=== PATIENT | female | born 1995 | race Caucasian/White ===

== ENCOUNTER 2022-06-17 10:58 | Outpatient (CLI) | payer MEDICAID ==
[2022-06-17 11:51] LABS: Hemoglobin 13.8 g/dL (12.0-15.5); Mean Corpuscular HGB CONC 33.4 g/dL (32.0-36.0); Mean Corpuscular Hemoglobin 30.1 pg (27.0-33.0); Mean Platelet Volume 12.4 fl (7.4-10.4); Platelet Count 182 10x3/uL (150-450); RBC Distribution Width 12.2 % (11.5-14.5); Red Blood Cell (RBC) Count 4.59 10x6/uL (3.90-5.03); White Blood Cell (WBC) Count 8.3 10x3/uL (3.5-10.5)
[2022-06-17 11:56] LABS: BHCG - Serum Negative (NEGATIVE); Pregs Control Background? CLEAR/WHITE (CLR/WHITE); Pregs Control Bar Appear? YES (CONTROL BAR)
== END 2022-06-17 10:59 | disposition home or self-care (01) ==
LOC: CSHLAB 10:58
PROVIDERS: ATTEND Obstetrics & Gynecology
DX: Z01.812 Encounter for preprocedural laboratory examination (principal); Z20.822 Contact with and (suspected) exposure to COVID-19
CPT/HCPCS: 84703; 85027; 86850; 86900; 86901; 87811

== ENCOUNTER 2022-06-22 10:18 | Day surgery (SDC) | payer MEDICAID ==
[2022-06-17 11:51] LABS: Hemoglobin 13.8 g/dL (12.0-15.5); Mean Corpuscular HGB CONC 33.4 g/dL (32.0-36.0); Mean Corpuscular Hemoglobin 30.1 pg (27.0-33.0); Mean Platelet Volume 12.4 fl (7.4-10.4); Platelet Count 182 10x3/uL (150-450); RBC Distribution Width 12.2 % (11.5-14.5); Red Blood Cell (RBC) Count 4.59 10x6/uL (3.90-5.03); White Blood Cell (WBC) Count 8.3 10x3/uL (3.5-10.5)
[2022-06-17 11:56] LABS: BHCG - Serum Negative (NEGATIVE); Pregs Control Background? CLEAR/WHITE (CLR/WHITE); Pregs Control Bar Appear? YES (CONTROL BAR)
[2022-06-19 10:34] VITALS: BMI 19.2
[2022-06-22] MEDS ORDERED: Lidocaine 1% MPF 2 ML VIAL ONE (11:13)
[2022-06-22] MEDS ORDERED: PROPOFOL 20 ML ONE ×2 (12:40→13:26)
[2022-06-22] MEDS ORDERED: Midazolam HCl 2 mg/2 ml Vial ONE (12:40)
[2022-06-22] MEDS ORDERED: Dexamethasone 20 MG/5 ML VIAL ONE (12:41)
[2022-06-22] MEDS ORDERED: Lidocaine 1% PF 5 ML VIAL ONE (12:41)
[2022-06-22] MEDS ORDERED: Ondansetron PF 4 MG/2 ML Vial ONE (12:41)
[2022-06-22] MEDS ORDERED: HYDROmorphone 0.5 MG/0.5 ML SYRINGE ONE (12:57)
[2022-06-22] MEDS ORDERED: CEFAZOLIN 2 GM VIAL ONE (13:11)
[2022-06-22] MEDS ORDERED: Ferric Subsulfate Topical Solution ONE (13:35)
== END 2022-06-22 15:22 | disposition home or self-care (01) ==
LOC: CSHSDC 10:18
PROVIDERS: ATTEND Obstetrics & Gynecology
PROC: 0UBC8ZZ Excision of Cervix, Via Natural or Artificial Opening Endoscopic (ICD-10-PCS; principal; 2022-06-22)
DX: N87.1 Moderate cervical dysplasia (principal); Z79.899 Other long term (current) drug therapy; Z88.8 Allergy status to other drugs, medicaments and biological substances; Z20.822 Contact with and (suspected) exposure to COVID-19; Z98.890 Other specified postprocedural states
CPT/HCPCS: 36415; 84703; 85027; 86850; 86900; 86901; 87811; 88307; 88341; 88342; J0690; J1100; J1170; J2250; J2405; J2704

== ENCOUNTER 2022-07-16 08:52 | Emergency (ER) | payer MEDICAID, SELFPAY ==
[2022-07-16 09:26] LABS: #Basophils 0.1 10x3/uL (0.0-0.2); #Eosinphils 0.1 10x3/uL (0.0-0.5); #Monocytes 0.6 10x3/uL (0.0-1.1); #Neutrophils 5.2 10x3/uL (1.5-8.4); %Basophils 0.8 % (0.0-2.0); %Eosinophils 1.4 % (0.0-6.0); %Lymphocytes 20.6 % (18.0-47.0); %Monocytes 8.3 % (0.0-10.0); %Neutrophils 68.2 % (40.0-75.0); Hemoglobin 14.1 g/dL (12.0-15.5); Mean Corpuscular HGB CONC 33.8 g/dL (32.0-36.0); Mean Corpuscular Hemoglobin 30.2 pg (27.0-33.0); Mean Corpuscular Volume 89.3 fl (81.6-98.3); Mean Platelet Volume 11.5 fl (7.4-10.4); Platelet Count 251 10x3/uL (150-450); RBC Distribution Width 12.6 % (11.5-14.5); Red Blood Cell (RBC) Count 4.67 10x6/uL (3.90-5.03); White Blood Cell (WBC) Count 7.6 10x3/uL (3.5-10.5)
[2022-07-16 09:30] LABS: BHCG - Serum Negative (NEGATIVE); Pregs Control Background? CLEAR/WHITE (CLR/WHITE); Pregs Control Bar Appear? YES (CONTROL BAR)
== END 2022-07-16 10:30 | disposition home or self-care (01) ==
LOC: CSHERS 08:52 → EEVIPCON 08:52 → CSHERS 10:30
DX: N93.9 Abnormal uterine and vaginal bleeding, unspecified (principal)
CPT/HCPCS: 36415; 84703; 85025; 99284

== ENCOUNTER 2023-05-28 10:20 | Day surgery (SDC) | payer OTHER ==
[2023-05-28 10:50] VITALS: BMI 23.9
[2023-05-28] MEDS ORDERED: Betamet Acet/Betamet Na Ph 30 MG/5 ML VIAL IM SCH (11:22)
[2023-05-28] MEDS ORDERED: Terbutaline Sulfate 1 MG/ML VIAL SC PRN (11:41)
[2023-05-28] MEDS ORDERED: Terbutaline Sulfate 1 MG/ML VIAL ONE (11:51)
[2023-05-28] MEDS ORDERED: Lactated Ringer's 1,000 ML IV SCH (12:00)
[2023-05-28] MEDS ORDERED: metroNIDAZOLE 500 MG TAB PO SCH (14:30)
[2023-05-30 01:34] LABS: Group B Streptococcus by PCR Not Detected (NotDetected)
== END 2023-05-28 16:30 | disposition home or self-care (01) ==
LOC: CSHLD/OP 10:20
PROVIDERS: ATTEND Obstetrics & Gynecology
DX: O47.03 False labor before 37 completed weeks of gestation, third trimester (principal); O23.593 Infection of other part of genital tract in pregnancy, third trimester; B96.89 Other specified bacterial agents as the cause of diseases classified elsewhere; Z3A.32 32 weeks gestation of pregnancy
CPT/HCPCS: 87480; 87510; 87653; 87660; 96360; 99283; J3105

== ENCOUNTER 2023-06-26 17:41 | Inpatient (IN) | payer OTHER ==
[2023-06-26 18:09] LABS: #Basophils 0.1 10x3/uL (0.0-0.2); #Eosinphils 0.1 10x3/uL (0.0-0.5); #Monocytes 1.2 10x3/uL (0.0-1.1); #Neutrophils 8.1 10x3/uL (1.5-8.4); %Basophils 0.7 % (0.0-2.0); %Eosinophils 0.9 % (0.0-6.0); %Lymphocytes 16.8 % (18.0-47.0); %Monocytes 10.1 % (0.0-10.0); %Neutrophils 67.6 % (40.0-75.0); Hematocrit 34.5 % (34.9-44.5); Hemoglobin 10.8 g/dL (12.0-15.5); Mean Corpuscular HGB CONC 31.3 g/dL (32.0-36.0); Mean Corpuscular Hemoglobin 23.6 pg (27.0-33.0); Mean Corpuscular Volume 75.5 fl (81.6-98.3); Mean Platelet Volume 11.2 fl (7.4-10.4); Platelet Count 215 10x3/uL (150-450); RBC Distribution Width 13.6 % (11.5-14.5); Red Blood Cell (RBC) Count 4.57 10x6/uL (3.90-5.03); White Blood Cell (WBC) Count 11.9 10x3/uL (3.5-10.5)
[2023-06-26] MEDS ORDERED: Famotidine/PF 20 mg/2ml Vial ONE (18:10)
[2023-06-26 18:31] LABS: ALT (SGPT) 8 U/L (8-55); AST (SGOT) 20 U/L (5-34); Albumin 3.8 g/dL (3.5-5.0); Alkaline Phosphatase 145 U/L (40-110); Anion Gap 15 mmol/L (10-20); BUN (Urea Nitrogen) 5 mg/dL (7.0-18.7); Bilirubin, Total 0.5 mg/dL (0.2-1.2); Calc. Creatinine Clearance 0 mL/min (70-130); Carbon Dioxide 19 mmol/L (22-29); Chloride 108 mmol/L (98-107); Estimated GFR 123; Globulin 3.1 g/dL (2.4-3.5); Glucose 93 mg/dL (70-105); Lipase 22 U/L (8-78); Potassium 3.9 mmol/L (3.5-5.1); Protein, Total 6.9 g/dL (6.0-8.3); Sodium 138 mmol/L (136-145)
[2023-06-26] MEDS ORDERED: Lidocaine 1% (PF) 30 ML VIAL ONE (18:34)
[2023-06-26] MEDS ORDERED: Acetaminophen 500 MG TAB ONE (18:47)
[2023-06-26] MEDS ORDERED: Morphine 4 MG/ML VIAL ONE ×2 (19:00→19:21)
[2023-06-26 23:20] VITALS: BMI 24.8
[2023-06-27] MEDS ORDERED: Morphine 2 MG/ML VIAL SLOW IVP PRN (00:20)
[2023-06-27] MEDS ORDERED: Ondansetron PF 4 MG/2 ML Vial IVP PRN (00:20)
[2023-06-27] MEDS: HYDROcodone/Acetaminophen 5/325 mg Tablet PO PRN ×2 (01:30→13:25)
[2023-06-28] MEDS ORDERED: Lidocaine 1% PF 5 ML VIAL FS SCH (18:00)
[2023-06-28] MEDS: HYDROcodone/Acetaminophen 5/325 mg Tablet PO PRN (20:24)
[2023-06-29] MEDS: HYDROcodone/Acetaminophen 5/325 mg Tablet PO PRN ×2 (14:49→21:34)
[2023-06-30 18:35] VITALS: BP 135/67; TEMP 98
== END 2023-06-30 18:30 | disposition home or self-care (01) | DRG 832 ==
LOC: CSHERS 17:41 → CSHTELE 23:15 → OBSVTOIN 06-30 08:23
PROVIDERS: ADMIT Surgery; ATTEND Surgery
PROC: 0W9930Z Drainage of Right Pleural Cavity with Drainage Device, Percutaneous Approach (ICD-10-PCS; principal; 2023-06-28)
DX: O99.513 Diseases of the respiratory system complicating pregnancy, third trimester (principal); J96.11 Chronic respiratory failure with hypoxia; Z3A.36 36 weeks gestation of pregnancy
CPT/HCPCS: 36415; 59025; 71045; 80053; 83690; 84484; 85025; 85379; 93005; 96375; 96376; G0378; J2001; J2270; J2272; J2405; S0028

== ENCOUNTER 2023-07-12 05:30 | Inpatient (IN) | payer OTHER ==
[2023-07-12] MEDS ORDERED: Ibuprofen 800 MG TAB PO PRN (06:01)
[2023-07-12] MEDS ORDERED: Promethazine HCl 25 MG/ML VIAL IM PRN ×3 (06:01→14:14)
[2023-07-12] MEDS ORDERED: Methylergonovine 0.2 MG/ML VIAL IM PRN (06:01)
[2023-07-12] MEDS ORDERED: Diphenoxylate HCl/Atropine Tablet PO PRN ×2 (06:01)
[2023-07-12] MEDS ORDERED: Carboprost 250 MCG/ML AMP IM PRN (06:01)
[2023-07-12] MEDS ORDERED: Tranexamic Acid 1,000 MG/10 ML VIAL IVP PRN (06:01)
[2023-07-12] MEDS ORDERED: Acetaminophen 500 MG TAB PO PRN (06:01)
[2023-07-12] MEDS ORDERED: Ondansetron PF 4 MG/2 ML Vial IVP PRN ×3 (06:01→14:14)
[2023-07-12] MEDS ORDERED: fentaNYL 50 mcg/mL 1 mL Vial SLOW IVP PRN (06:01)
[2023-07-12] MEDS ORDERED: Misoprostol 200 MCG TAB PR PRN (06:01)
[2023-07-12] MEDS ORDERED: Butorphanol Tartrate 1 MG/ML VIAL SLOW IVP PRN (06:01)
[2023-07-12] MEDS ORDERED: hydrALAZINE 20 MG/ML VIAL SLOW IVP PRN ×2 (06:01→14:14)
[2023-07-12] MEDS ORDERED: HYDROcodone/Acetaminophen 5/325 mg Tablet PO PRN ×4 (06:01→14:14)
[2023-07-12] MEDS ORDERED: Lidocaine 1% (PF) 30 ML VIAL SC PRN (06:01)
[2023-07-12] MEDS ORDERED: NS w/ Oxytocin 30 units 500 ML IV SCH ×4 (06:15→14:14)
[2023-07-12 06:38] VITALS: BMI 24.8
[2023-07-12 06:48] LABS: Hemoglobin 9.7 g/dL (12.0-15.5); Mean Corpuscular HGB CONC 31.3 g/dL (32.0-36.0); Mean Corpuscular Hemoglobin 22.7 pg (27.0-33.0); Mean Corpuscular Volume 72.6 fl (81.6-98.3); Mean Platelet Volume 11.6 fl (7.4-10.4); Platelet Count 247 10x3/uL (150-450); RBC Distribution Width 14.5 % (11.5-14.5); Red Blood Cell (RBC) Count 4.27 10x6/uL (3.90-5.03); White Blood Cell (WBC) Count 15.9 10x3/uL (3.5-10.5)
[2023-07-12 07:48] LABS: HBSAg Index 0.19 S/CO (0-0.99); Hep B Surf Ag - L&D Non-Reactive S/CO (NonReactive); Syphilis Antibody Nonreactive (Nonreactive); Syphilis Antibody Index 0.03 S/CO (<1.00 Non-Reactive)
[2023-07-12] MEDS ORDERED: Bupivacaine 0.25% HCL 30 ML VIAL ONE (08:00)
[2023-07-12] MEDS ORDERED: fentaNYL/Ropivacaine Epidural 100 ML ONE (09:12)
[2023-07-12] MEDS ORDERED: Lactated Ringer's 500 ML IV PRN (09:17)
[2023-07-12] MEDS ORDERED: Naloxone HCl 0.4 mg/ml Vial IVP PRN ×2 (09:17)
[2023-07-12] MEDS ORDERED: Acetaminophen 325 MG TAB PO PRN (09:17)
[2023-07-12] MEDS ORDERED: diphenhydrAMINE 50 MG/ML VIAL IVP PRN (09:17)
[2023-07-12] MEDS ORDERED: Moisturizing Cream (Eucerin) 113 GM JAR TOP PRN (09:17)
[2023-07-12] MEDS ORDERED: ePHEDrine Sulfate 50 MG/10 ML VIAL SLOW IVP PRN (09:17)
[2023-07-12] MEDS: Lactated Ringer's 1,000 ML IV SCH ×2 (09:29→09:50)
[2023-07-12] MEDS ORDERED: fentaNYL 2 mcg/Ropivacaine 0.2% Epidural 100 ML CADD EPIDURAL SCH (09:30)
[2023-07-12] MEDS ORDERED: Communication Order-Pharmacy FS SCH (09:30)
[2023-07-12] MEDS: Misoprostol 100 MCG TAB VAG SCH ×2 (09:30→14:28)
[2023-07-12] MEDS ORDERED: Dexmedetomidine 200 MCG/2 ML VIAL ONE (10:04)
[2023-07-12] MEDS ORDERED: Preparation H Ointment 28 GM TUBE PR PRN (14:14)
[2023-07-12] MEDS ORDERED: diphenhydrAMINE 25 MG CAP PO PRN (14:14)
[2023-07-12] MEDS ORDERED: Boostrix 0.5 ML (Tdap) VIAL (>/=7 yrs of age) IM ONE (14:14)
[2023-07-12] MEDS ORDERED: Benzocaine-Menthol 82.5 ML CAN TOP PRN (14:14)
[2023-07-12] MEDS ORDERED: Misoprostol 200 MCG TAB VAG PRN (14:14)
[2023-07-12] MEDS ORDERED: Milk Of Magnesia 30 ML UDCUP PO PRN (14:14)
[2023-07-12] MEDS ORDERED: Measles/Mumps/Rubella 10 MCG/0.5 ML VIAL SC ONE (14:14)
[2023-07-12] MEDS ORDERED: Varicella virus, LIVE 0.5 ML VIAL SC ONE (14:14)
[2023-07-12] MEDS ORDERED: Zolpidem Tartrate 5 MG TAB PO PRN (14:14)
[2023-07-12] MEDS ORDERED: Lanolin Ointment 7 GM TUBE TOP PRN (14:14)
[2023-07-12] MEDS ORDERED: Bisacodyl 10 MG SUPP PR PRN (14:14)
[2023-07-12] MEDS: Ibuprofen 800 MG TAB PO SCH ×2 (14:30→21:35)
[2023-07-12] MEDS: Ferrous Sulfate 325 MG TAB PO SCH (17:47)
[2023-07-12] MEDS: Docusate 100 MG CAP PO SCH (21:35)
[2023-07-13 04:25] LABS: Hematocrit 30.1 % (34.9-44.5); Hemoglobin 9.4 g/dL (12.0-15.5); Mean Corpuscular HGB CONC 31.2 g/dL (32.0-36.0); Mean Corpuscular Hemoglobin 22.7 pg (27.0-33.0); Mean Corpuscular Volume 72.7 fl (81.6-98.3); Mean Platelet Volume 11.4 fl (7.4-10.4); Platelet Count 225 10x3/uL (150-450); RBC Distribution Width 14.1 % (11.5-14.5); Red Blood Cell (RBC) Count 4.14 10x6/uL (3.90-5.03); White Blood Cell (WBC) Count 16.7 10x3/uL (3.5-10.5)
[2023-07-13] MEDS: Ibuprofen 800 MG TAB PO SCH (05:05)
[2023-07-13 07:40] VITALS: BP 98/55; TEMP 98.5
[2023-07-13] MEDS: Docusate 100 MG CAP PO SCH (08:49)
[2023-07-13] MEDS: Ferrous Sulfate 325 MG TAB PO SCH (08:49)
[2023-07-13] MEDS ORDERED: Prenatal Vitamin 1 TAB PO SCH (09:00)
== END 2023-07-13 15:35 | disposition home or self-care (01) | DRG 807 ==
LOC: CSHLD 05:42 → CSHPED 14:23
PROVIDERS: ADMIT Obstetrics & Gynecology; ATTEND Obstetrics & Gynecology
PROC: 10E0XZZ Delivery of Products of Conception, External Approach (ICD-10-PCS; principal; 2023-07-12)
DX: O80 Encounter for full-term uncomplicated delivery (principal); Z37.0 Single live birth; Z3A.39 39 weeks gestation of pregnancy
CPT/HCPCS: 36415; 85027; 86780; 86850; 86900; 86901; 87340; J2590; J7120